=== PATIENT | female | born 2005 | race Caucasian/White ===

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

== ENCOUNTER → 2023-02-19 | Outpatient (CLI) | payer MEDICAID | LOC: RAD 10:40 | DX: M25.561 Pain in right knee (principal) ==